=== PATIENT | female | born 1985 | race Caucasian/White ===

== ENCOUNTER 2017-02-08 01:38 | Inpatient (IN) | payer OTHER ==
[~2017-02-08] VITALS: Ht 154.9 cm; Wt 69.0 kg
[~2017-02-08 01:38] MED LIST: NO MEDS
[2017-02-08 01:55] VITALS: BP 132/61; PULSE 95; RESP 18
[2017-02-08] MEDS ORDERED: PRENAT PO (02:12)
[2017-02-08] MEDS ORDERED: LIDOCAINE 1% (MPF) 30 ML INJ INJ PRN (02:30)
[2017-02-08] MEDS ORDERED: BUTORPHANOL 2 MG INJ IV PRN (02:30)
[2017-02-08] MEDS ORDERED: METHYLERGONOVINE 0.2 MG INJ IM PRN ×2 (02:30→18:00)
[2017-02-08] MEDS ORDERED: MISOPROSTOL 200 MCG TAB PR PRN ×2 (02:30→18:00)
[2017-02-08] MEDS ORDERED: OXYTOCIN 30 UNITS/LR 500 ML IV SCH ×4 (02:30→10:30)
[2017-02-08] MEDS ORDERED: CARBOPROST 250 MCG INJ IM PRN ×2 (02:30→18:00)
[2017-02-08] MEDS ORDERED: OXYTOCIN 30 UNITS/LR 500 ML IV PRN ×2 (02:30→18:00)
[2017-02-08] MEDS ORDERED: IBUPROFEN 600 MG TAB PO PRN (02:30)
--- NOTE | 2017-02-08 02:38 | TRIAGE ---
OB Triage Datetime Report Generated by CPN: 02/08/2017 02:37 Datetime: 02/08/2017 02:21 EGA: 38.3 Datetime: 02/08/2017 02:18 Stage of : OB Triage Labor Evaluation Frequency: 2-5 Monitor Mode: External Duration (sec)2399: 60 Quality: Moderate Pattern: Normal: <= 5 Contractions in 10 Minutes Resting Tone [place]: Relaxed Heart Rate FHR Baseline Rate: 130 Monitor Mode: External US FHR Baseline Changes: No Baseline Change Variability: Moderate 6-25 bpm Accelerations: 15X15 Decelerations: None Category: Category I Vaginal Exam Dilatation (cms): 2.0 Effacement (%): 70 Station: -3 Exam By: Randee Juarez Membrane Status: Intact Vaginal Bleeding: Small Cervix, Consistency: Soft Cervix, Position: Posterior Presentation 'A': Cephalic Datetime: 02/08/2017 01:56 Time of Arrival: 02/08/2017 01:30 Arrived By: Wheelchair Arrived From: Home Chief Complaint: w/ c/o mod amt pink bleeding last 20 min Movement: Present Contractions: Occasional Rupture of Membranes: Denies Vaginal Bleeding: Moderate Vaginal Discharge: Present Abdominal Trauma: Not Applicable Patient Complaints: Other Time Provider Notified: 02/08/2017 02:25 Provider Notified: Dr Moran Initial Plan: EFM Datetime: 02/08/2017 01:47 Stage of : OB Triage Maternal Assessment Level of Consciousness: Fully Conscious Headache: Denies Blurred Vision: No Respiratory Effort: Unlabored Nausea/Vomiting: Denies RUQ Epigastric Pain: Denies Facial Edema: None Labor Evaluation Frequency: placed Monitor Mode: External Resting Tone [place]: Relaxed Heart Rate FHR Baseline Rate: 140 Monitor Mode: External US Pain Assessment Pain Scale: 0 Pain Presence: None/Denies Pain Type: N/A
[2017-02-08] MEDS ORDERED: LACTATED RINGER'S 1,000 ML IV PRN (03:00)
[2017-02-08] MEDS: LACTATED RINGER'S 1,000 ML IV SCH ×3 (03:02→15:15)
[2017-02-08 03:19] LABS: ADD SCAN DIFF NO
[2017-02-08 03:20] LABS: BASOPHILS % 0.1 % (0.0-2.0); EOSINOPHILS # 0.1 10^3/ul (0.0-0.5); EOSINOPHILS % 0.6 % (0.0-7.0); HEMATOCRIT 35.4 % (37.0-47.0); LYMPHOCYTES # 2.6 10^3/ul (0.8-2.9); LYMPHOCYTES % 22.6 % (15.0-51.0); MEAN CORPUSCULAR HEMOGLOBIN 31.7 pg (29.0-33.0); MEAN CORPUSCULAR HGB CONC 33.9 g/dl (32.0-37.0); MEAN CORPUSCULAR VOLUME 93.4 fl (82.0-101.0); MEAN PLATELET VOLUME 10.9 fl (7.4-10.4); MONOCYTE # 0.9 10^3/ul (0.3-0.9); MONOCYTES % 7.5 % (0.0-11.0); NEUTROPHIL # 7.8 10^3/ul (1.6-7.5); NEUTROPHILS % 68.7 % (39.0-77.0); PLATELET COUNT 187 10^3/UL (140-415); RED BLOOD COUNT 3.79 10^6/ul (4.20-5.40); RED CELL DISTRIBUTION WIDTH 12.9 % (11.5-14.5); WHITE BLOOD COUNT 11.4 10^3/ul (4.8-10.8)
[2017-02-08 03:36] LABS: INR 0.91; PROTIME 12.2 Sec (12.2-14.2)
[2017-02-08 03:37] LABS: PARTIAL THROMBOPLASTIN TIME 26.1 Sec (25.0-35.0)
[2017-02-08 03:41] LABS: ALBUMIN 3.8 g/dl (3.3-4.9); ALBUMIN/GLOBULIN RATIO 1.46; BILIRUBIN,INDIRECT 0.1 mg/dl (0-1.1); BILIRUBIN,TOTAL 0.1 mg/dl (0.2-1.3); CREATININE 0.83 mg/dl (0.44-1.00); POTASSIUM 3.9 mmol/L (3.5-5.1); TOTAL PROTEIN 6.4 g/dl (6.1-8.1); URIC ACID 6.3 mg/dl (3.1-7.9)
[2017-02-08] MEDS ORDERED: FENTAnyl 2MCG/ML-ROPIV 0.2% 100 ML ONE (07:56)
[2017-02-08 14:23] LABS: ADD UMIC YES; UR ASCORBIC ACID NEGATIVE (NEGATIVE); UR BILIRUBIN (Dip) NEGATIVE (NEGATIVE); UR BLOOD (Dip) 2+ mg/dL (NEGATIVE); UR CLARITY CLEAR (CLEAR); UR COLOR YELLOW (YELLOW); UR GLUCOSE (Dip) NEGATIVE (NEGATIVE); UR KETONES (Dip) NEGATIVE (NEGATIVE); UR LEUKOCYTE ESTERASE (Dip) NEGATIVE Leu/ul (NEGATIVE); UR NITRITE (Dip) NEGATIVE (NEGATIVE); UR RBC 8 /HPF (0-5); UR SPECIFIC GRAVITY (Dip) 1.012 (1.003-1.030); UR TOTAL PROTEIN (Dip) NEGATIVE (NEGATIVE); UR UROBILINOGEN (Dip) NEGATIVE (NEGATIVE)
--- NOTE | 2017-02-08 16:15 | LDN ---
Date/Time of Note Date/Time of Note DATE: 02/08/17 TIME: 16:14 Delivery Summary pt pushed and delivered viable without complications Placenta Delivered: Spontaneously Meconium: Light Episiotomy: No Laceration repair: 2nd degree lac repaired with 2-0 vicryl Anesthesia type: Epidural Sponge & Needle done & correct: Yes All needle counts correct: Yes Any foreign bodies felt in the: No Problems: Infant Delivery Information Sex Infant Sex: male Suctioning Nose & mouth suctioned at santosh: Yes Umbilical Cord Umbilical cord with: 3 Vessels Cord presentations: no nuchal cord Cord Blood was obtained: Yes JULIETA LEES MD Feb 08, 2017 16:15
[2017-02-08] MEDS: LACTATED RINGER'S 1,000 ML IV* SCH (17:31)
[2017-02-08] MEDS: OXYTOCIN 30 UNITS/LR 500 ML IV SCH ×2 (17:31→21:08)
[2017-02-08] MEDS: IBUPROFEN 600 MG TAB PO SCH (17:51)
[2017-02-08] MEDS ORDERED: DIBUCAINE 1% 30 GM OINT PR PRN (18:00)
[2017-02-08] MEDS ORDERED: ACETAMINOPHEN/CODEINE #3 TAB PO PRN (18:00)
[2017-02-08] MEDS ORDERED: ACETAMINOPHEN 325 MG TAB PO PRN (18:00)
[2017-02-08] MEDS ORDERED: WITCH HAZEL/GLYCERIN PAD PR PRN (18:00)
[2017-02-08] MEDS ORDERED: BENZOCAINE 20% 56 ML SPRAY TOP PRN (18:00)
[2017-02-08 18:19] VITALS: BP 125/71; PULSE 83; RESP 18
[2017-02-08 20:30] VITALS: BP 129/71; PULSE 71; RESP 18
[2017-02-08] MEDS: SENNA/DOCUSATE NA (8.6MG/50MG) TAB PO SCH (21:08)
[2017-02-09] MEDS: IBUPROFEN 600 MG TAB PO SCH ×4 (00:09→18:13)
[2017-02-09 00:10] VITALS: BP 122/75; PULSE 70; RESP 18
[2017-02-09] MEDS: LACTATED RINGER'S 1,000 ML IV* SCH (01:31)
[2017-02-09 03:45] VITALS: BP 107/67; PULSE 75
[2017-02-09 07:43] VITALS: BP 108/64; PULSE 76; RESP 18
--- NOTE | 2017-02-09 07:52 | DS ---
Date/Time of Note Date/Time of Note DATE: 02/09/17 TIME: 07:52 Obstetrical Discharge Record Final Diagnosis Final Diagnosis: Term delivered Vaginal Delivery Obstetrical Delivery: Spontaneous Complications Augmentation: No Induction: No Rupture of Membranes: No Condition on Discharge Physical Assessment Voiding: Yes Bowel Movement: Yes Breast: Soft, non-tender, Filling Fundus: Firm Abdomen and Incision: soft, not tender Calf Tenderness: No Patient Condition: Good BIJU MULLER MD Feb 09, 2017 07:52
[2017-02-09] MEDS: SENNA/DOCUSATE NA (8.6MG/50MG) TAB PO SCH (08:36)
[2017-02-09] MEDS ORDERED: PRENATAL VITAMIN PO SCH (09:00)
[2017-02-09 16:00] VITALS: BP 112/68; PULSE 75; RESP 18
== END 2017-02-09 18:50 | disposition home or self-care (01) | DRG 775 ==
LOC: OBT 01:38 → L-D 01:40 → OBT 02:25 → PP1 18:04
PROVIDERS: ADMIT Specialist; ATTEND Specialist
PROC: 10E0XZZ Delivery of Products of Conception, External Approach (ICD-10-PCS; principal; 2017-02-08)
PROC: 0KQM0ZZ Repair Perineum Muscle, Open Approach (ICD-10-PCS; 2017-02-08)
DX: O70.1 Second degree perineal laceration during delivery (principal); Z37.0 Single live birth; Z3A.37 37 weeks gestation of pregnancy
CPT/HCPCS: 62319; 80053; 81001; 84560; 85025; 85610; 85730; 86592; 86900; 86901; 87340; G0463; J2590; J3010; J7120